=== PATIENT | female | born 2000 | race African-American/Black ===

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

== ENCOUNTER 2024-07-14 21:13 | Emergency (ER) | payer OTHER | END 2024-07-14 22:01 | disposition left against medical advice (07) | LOC: ERS 21:13 | DX: Z53.21 Procedure and treatment not carried out due to patient leaving prior to being seen by health care provider (principal) ==